=== PATIENT | female | born 1985 | race Caucasian/White ===

== ENCOUNTER 2016-09-12 16:49 | Emergency (ER) | payer BC ==
[2016-09-12] MEDS: Acetaminophen/HYDROcodone 325-5 MG Tab PO ONE ×2 (17:02→17:03)
[2016-09-12 17:25] VITALS: BP 113/50
--- NOTE | 2016-09-13 09:01 | ER ---
Date of Service: 09/12/2016 SUBJECTIVE: Carmen presents to the emergency room with complaints of right ankle pain. The patient states that she had a jump or fell out of the back of a pickup and felt a "crack" from her right ankle. She subsequently experienced a sharp searing pain in the extremity and was unable to bear weight. The witness states that she was hysterical, complaining of severe pain in the joint. The patient denies any injury other than what is isolated to her right ankle. She states that she did not strike her head during the event. PAST MEDICAL HISTORY: Depression. MEDICATIONS: 1. Ibuprofen 800 mg every 8 hours. 2. Zoloft 100 mg daily. 3. Jolivette control. ALLERGIES: Penicillin. REVIEW OF SYSTEMS: General: No fever or chills. Musculoskeletal: Again, complains of severe diffuse ankle pain. Neurovascular: Denies any numbness or tingling in the distal portion of the extremity. PHYSICAL EXAMINATION: General: This is a 31-year-old female patient, in no acute distress. Vital Signs: Blood pressure 113/50, heart rate is 88, respiratory rate 22, and temperature is 36.3. Skin: Warm, pink, and dry. Musculoskeletal: The patient's right ankle is diffusely tender on the both medial and lateral aspect as well as the anterior and posterior aspect of the ankle. Any palpation, even lightly to the skin, elicits an extreme pain response. Unable to perform much in way of range of motion testing or any other evaluation of the ankle due to the patient's severe pain. RADIOGRAPHIC DATA: Radiographs of the patient's right ankle were obtained. There was no evidence of any acute fracture or dislocation. No significant soft tissue swelling was noted. ASSESSMENT: Right ankle sprain. PLAN: The patient was discharged. I did give her 1 Lortab 5/325 on arrival at the emergency room for pain control. The patient was subsequently placed in an Phil wrap and stirrup splint and started on crutches. We will have her follow up in the clinic in the next 10 to 14 days for repeat radiographs if continuing to experience discomfort. All questions were answered. MWK: 09/12/2016 17:41:55 MODL: 09/12/2016 23:30:18 /[id number]
== END 2016-09-12 17:40 | disposition home or self-care (01) ==
LOC: VM.ED 16:49
DX: S93.401A Sprain of unspecified ligament of right ankle, initial encounter (principal); Z88.0 Allergy status to penicillin; V43.92XA Unspecified car occupant injured in collision with other type car in traffic accident, initial encounter
CPT/HCPCS: 73610; 99283; A9270